=== PATIENT | female | born 1960 | race Caucasian/White ===

== ENCOUNTER 2016-11-14 03:12 | Emergency (ER) | payer BC, OTHER ==
[~2016-11-14 03:12] MED LIST: APRESOLINE10 MG PO; BISA-LAX10 MG/SUP1 RC; COLACE PO; CORRECTOL5 MG PO; DIOVAN320 MG PO; INDOMETHACIN25 MG PO; LEVAQUIN750 MG PO; LORTAB 10-3251 EACH PO; METOPROLOL TART25 MG PO; MIRALAX17 GM DOB; PERCOCET 51 UDTAB 5/ PO; TYLENOL325 M1 PO; XANAX1 MG PO; [UNRECOGNIZED DRUG - REMARK]
[2016-11-14 05:42] LABS: URINE SOURCE CLEAN CATCH
[2016-11-14 05:55] LABS: CULTURE INDICATED? YES; URINE APPEARANCE TURBID; URINE BACTERIA AUWI NEG (NEGATIVE); URINE BILIRUBIN NEG (NEG); URINE BLOOD 2+ (NEG); URINE COLOR YELLOW; URINE GLUCOSE >1000 MG/DL (NEG); URINE KETONE NEG (NEG); URINE LEUKOCYTE ESTERASE 2+ (NEG); URINE NITRATE NEG (NEG); URINE PH 5.5 (5-8); URINE PROTEIN NEG (NEG); URINE SPECIFIC GRAVITY 1.033 (1.003-1.035); URINE SQUAMOUS EPITHELIAL CELL MOD /[HPF]; URINE UROBILINOGEN 0.2 MG/DL (NEG); UWBCS1 AUWI 200-300 (0-5)
[2016-11-14 06:03] LABS: U HYALINE CASTS AUWI 0-2 /[LPF]; URINE MUCUS PRESENT
[2016-11-17 08:19] LABS: CHLAMYDIA TRACH Not Detected (Not Detected); N GONOR Not Detected (Not Detected)
== END 2016-11-14 07:19 | disposition home or self-care (01) ==
LOC: CED 03:12
PROVIDERS: Emergency Medicine
DX: A59.01 Trichomonal vulvovaginitis (principal); A59.09 Other urogenital trichomoniasis; N39.0 Urinary tract infection, site not specified; E11.9 Type 2 diabetes mellitus without complications; Z79.4 Long term (current) use of insulin; Z86.718 Personal history of other venous thrombosis and embolism; Z90.49 Acquired absence of other specified parts of digestive tract
CPT/HCPCS: 81003; 87086; 87491; 87591; 87808; 87905; 96372; 99284; J0696